=== PATIENT | female | born 1975 | race Caucasian/White ===

== ENCOUNTER 2017-03-26 11:10 | Emergency (ER) | payer OTHER ==
[~2017-03-26] VITALS: Ht 167.6 cm; Wt 115.0 kg
[2017-03-26 11:12] VITALS: BP 136/63; PULSE 67; RESP 14; TEMP 99.1; O2SAT 98
[2017-03-26] MEDS ORDERED: LISI10TA3 PO (12:21)
[2017-03-26] MEDS ORDERED: HYDR25TA5 PO (12:21)
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
[2017-03-26 12:42] VITALS: BP 122/66; PULSE 66; RESP 18; O2SAT 98
[2017-03-26] MEDS ORDERED: ACETAMINOPHEN/HYDROcodone 325 MG/5 MG TAB PO ONE (12:45)
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
[2017-03-26] MEDS ORDERED: CYCL1TAB29 PO (13:50)
[2017-03-26] MEDS ORDERED: IBUP-232 PO (13:50)
[2017-03-26] MEDS ORDERED: KETOROLAC TROMETHAMINE 60 MG/2 ML (IM) VIAL IM ONE (14:00)
== END 2017-03-26 14:19 | disposition home or self-care (01) ==
LOC: NEPD 11:10
DX: S16.1XXA Strain of muscle, fascia and tendon at neck level, initial encounter (principal); S39.012A Strain of muscle, fascia and tendon of lower back, initial encounter; R51 Headache; V43.52XA Car driver injured in collision with other type car in traffic accident, initial encounter; Y92.414 Local residential or business street as the place of occurrence of the external cause; I10 Essential (primary) hypertension
CPT/HCPCS: 70450; 72125; 96372; 99285; J1885